=== PATIENT | male | born 1935 | race Caucasian/White ===

== ENCOUNTER 2018-03-10 13:07 | Emergency (ER) | payer MEDICARE, SELFPAY ==
[2018-03-10 13:08] VITALS: BP 121/75; PULSE 94; RESP 16; TEMP 36.7; O2SAT 97; BMI 34.4
--- NOTE | 2018-03-10 14:05 | ED.VISSUMM ---
- ER Visit Summary Date of Service: 03/10/18 Chief Complaint: Left forearm redness and sore. History of Present Illness: The patient is a 82 M states that he had dry skin on both forearms. He states that the left one has been red and swollen and mildly uncomfortable. He shaved hair off his left forearm today. He came to evaluate. He denies any fever or chills. He denies other symptoms except he does have a history of bladder stones intermittantly he has difficulty urinating. But states he is urinating fine today. Denies any bladder pain. Physical Examination: Well-appearing older male. Vital signs are stable afebrile. No acute distress. H EENT exam unremarkable. Neck nontender no lymphadenopathy. Lungs clear to auscultation bilaterally. Heart regular rate and rhythm no murmur. Abdomen soft nontender. Normal bowel sounds no peritoneal signs. Suprapubic palpation he has no pain. I do not feel an enlarged bladder. He is moving all 4 extremities. Neurovascular intact. Specifically the dorsum of the left forearm has mildly swollen skin that is red consistent with cellulitis. The left hand is neurovascular intact with normal radial pulse, 5 out of 5 affirmative action specialist strength and sensation. Otherwise exam unremarkable. Neurologically is awake and alert. Test Results: None Emergency Department Course and Treatment: Patient will be treated for a left forearm cellulitis. Started on Keflex 500 4 times daily for 10 days. Given his first dose here in the ER. Treatment Plan: Follow-up with primary care physician if not improving. Return if worse. Follow-up with Dr. Georges Parham of urology for his bladder stones. Disposition: Discharge Impression: Acute left forearm cellulitis This note was generated with [employer] dictation software. It may contain incorrect words, spelling, and punctuation that were not noted in review of the chart prior to signing ED Disposition - Plan for ED Patient: Chief Complaint: Upper Extremity Injury Referrals: Care Physician,No Primary [Primary Care Provider] -
--- NOTE | 2018-03-10 14:08 | ED.DEP ---
ED Disposition - Plan for ED Patient: Disposition: Home or Assisted Living Chief Complaint: Upper Extremity Injury Instructions: ED Infec Skin Cellulitis Prescriptions: Cephalexin [Keflex] 500 mg PO Q6 10 Days cap Referrals: Luis F Herbert Chi, MD [COURTESY STAFF PHYSICIAN] - 3-5 Days if not improving Additional Instructions: Keflex is the antibiotic to treat the skin infection on your left forearm. 1 pill 4 times a day for the next 10 days. Follow-up with the urologist Dr. Georges Parham for your bladder stones and urinary difficulty at times. Follow-up your primary care physician if the redness in your left forearm is not improving.
[2018-03-10] MEDS: Cephalexin 250 MG Capsule 500 MG PO (14:09)
--- NOTE | 2018-03-10 14:13 | ED.RN ---
called Valdo bustos to update on pt.
--- NOTE | 2018-03-10 14:37 | ED.RN ---
took patient to elevator to show way to pharmacy.
== END 2018-03-10 14:38 | disposition home or self-care (01) ==
LOC: ED 14:29
PROVIDERS: Emergency Provider Emergency Medicine
DX: L03.114 Cellulitis of left upper limb (principal); I25.10 Atherosclerotic heart disease of native coronary artery without angina pectoris; I25.2 Old myocardial infarction; Z87.442 Personal history of urinary calculi; Z90.49 Acquired absence of other specified parts of digestive tract; Z95.1 Presence of aortocoronary bypass graft; Z79.899 Other long term (current) drug therapy
CPT/HCPCS: 99283